=== PATIENT | male | born 1940 | race Caucasian/White ===

== ENCOUNTER 2021-09-26 12:27 | Inpatient (IN) | payer MEDICARE, BC ==
[2021-09-26 13:24] LABS: #Eosinphils 0.2 thou/uL (0.0-0.7); #Lymphocytes 0.5 thou/uL (1.20-3.40); #Monocytes 0.9 thou/uL (0.11-0.59); #Neutrophils 5.5 thou/uL (1.40-6.50); %Eosinophils 2.3 % (0.0-10.0); %Lymphocytes 6.9 % (21.0-51.0); %Monocytes 12.9 % (0.0-10.0); %Neutrophils 77.9 % (42.0-75.0); Hemoglobin 11.5 g/dL (14.0-18.0); Mean Corpuscular HGB CONC 32.1 g/dL (32.0-36.0); Mean Corpuscular Hemoglobin 34.1 pg (27.0-31.0); Mean Platelet Volume 7.6 fL (7.4-10.4); Platelet Count 230 thou/uL (130-400); RBC Distribution Width 15.6 % (11.5-14.5); Red Blood Cell (RBC) Count 3.38 mill/uL (4.70-6.10)
[2021-09-26 13:37] LABS: Anisocytosis SLIGHT = 6-15 cells (100X) (0-5/hpf); MDiff Complete? YES; Macrocytosis SLIGHT = 6-15 cells (100X) (0-5/hpf); Platelet Morphology Comment Appears Adequate; Polychromasia SLIGHT = 2-3 cells (100X) (0-2/hpf)
[2021-09-26 13:51] LABS: ALT (SGPT) 10 U/L (8-55); AST (SGOT) 20 U/L (5-34); Albumin 3.4 g/dL (3.4-4.8); Alkaline Phosphatase 87 U/L (40-110); Anion Gap 15 mmol/L (10-20); BUN (Urea Nitrogen) 13 mg/dL (8.4-25.7); Bilirubin, Total 0.6 mg/dL (0.2-1.2); Calc. Creatinine Clearance 0 mL/min (70-130); Calcium 8.8 mg/dL (7.8-10.44); Carbon Dioxide 22 mmol/L (23-31); Chloride 104 mmol/L (98-107); Globulin 3.6 g/dL (2.4-3.5); Glucose 123 mg/dL (83-110); Lipase 13 U/L (8-78); Potassium 4.8 mmol/L (3.5-5.1); Sodium 136 mmol/L (136-145)
[2021-09-26] MEDS ORDERED: Cefepime 2 GM VIAL ONE (13:56)
[2021-09-26] MEDS ORDERED: Vancomycin 1.5 GRAM/300 ML BAG 1.5 GM in Premix Bag 1 BAG IVPB SCH (14:00)
[2021-09-26 14:56] LABS: Bilirubin Negative (Negative); Blood, Urine Negative (Negative); Clarity Clear (Clear); Glucose, Urine (Dipstick) Normal (Negative); Ketone, Urine Negative (Negative); Leukocyte Negative Leu/uL (Negative); Nitrite Negative (Negative); Protein, Urine (Dipstick) Negative (Neg-Trace); Specific Gravity, Urine 1.014 (1.002-1.036)
[2021-09-26] MEDS ORDERED: Metoprolol Tartrate 5 MG/5 ML VIAL ONE (15:38)
[2021-09-26] MEDS ORDERED: Ondansetron ODT 4 MG TAB PO PRN (17:01)
[2021-09-26] MEDS ORDERED: Acetaminophen 500 MG TAB PO PRN (17:01)
[2021-09-26] MEDS ORDERED: Ondansetron PF 4 MG/2 ML Vial IVP PRN (17:01)
[2021-09-26] MEDS ORDERED: Amiodarone 200 MG TAB PO SCH (17:15)
[2021-09-26 18:16] VITALS: BMI 25.4
[2021-09-26] MEDS ORDERED: Metoprolol Tartrate 5 MG/5 ML VIAL IVP SCH (18:30)
[2021-09-26] MEDS ORDERED: Diltiazem 125 MG in Sodium Chloride 0.9% 100 ML IVPB SCH (18:30)
[2021-09-26] MEDS: Atorvastatin Calcium 40 MG TAB PO SCH (21:39)
[2021-09-26] MEDS: Ezetimibe 10 MG TAB PO SCH (21:40)
[2021-09-26] MEDS: Famotidine 20 MG TAB PO SCH (21:40)
[2021-09-26] MEDS: Sodium Chloride 0.9% 1,000 ML IV SCH (21:41)
[2021-09-27 00:25] LABS: SARS-CoV-2 PCR by NAA Not Detected (NotDetected)
[2021-09-27 04:17] LABS: #Eosinphils 0.1 thou/uL (0.0-0.7); #Lymphocytes 0.6 thou/uL (1.20-3.40); #Monocytes 0.1 thou/uL (0.11-0.59); #Neutrophils 4.5 thou/uL (1.40-6.50); %Basophils 0.3 % (0.0-1.0); %Eosinophils 2.8 % (0.0-10.0); %Lymphocytes 10.5 % (21.0-51.0); %Monocytes 1.5 % (0.0-10.0); %Neutrophils 84.9 % (42.0-75.0); Hemoglobin 9.8 g/dL (14.0-18.0); Mean Corpuscular HGB CONC 32.1 g/dL (32.0-36.0); Mean Corpuscular Hemoglobin 34.3 pg (27.0-31.0); Mean Platelet Volume 7.4 fL (7.4-10.4); Platelet Count 200 thou/uL (130-400); RBC Distribution Width 15.6 % (11.5-14.5); Red Blood Cell (RBC) Count 2.86 mill/uL (4.70-6.10); White Blood Cell (WBC) Count 5.3 thou/uL (4.8-10.8)
[2021-09-27 04:41] LABS: ALT (SGPT) 7 U/L (8-55); AST (SGOT) 12 U/L (5-34); Albumin 2.8 g/dL (3.4-4.8); Alkaline Phosphatase 68 U/L (40-110); Anion Gap 11 mmol/L (10-20); BUN (Urea Nitrogen) 14 mg/dL (8.4-25.7); Bilirubin, Total 0.4 mg/dL (0.2-1.2); Calc. Creatinine Clearance 77 mL/min (70-130); Carbon Dioxide 21 mmol/L (23-31); Chloride 108 mmol/L (98-107); Globulin 2.7 g/dL (2.4-3.5); Glucose 97 mg/dL (83-110); Protein, Total 5.5 g/dL (5.8-8.1); Sodium 136 mmol/L (136-145)
[2021-09-27] MEDS: Sodium Chloride 0.9% 1,000 ML IV SCH ×2 (05:35→15:43)
[2021-09-27] MEDS ORDERED: Non-Formulary Item 1 EACH (Umeclidinium Brm/Vilanterol Tr [Anoro Ellipta] 62.5 MCG/25 MCG IH SCH (09:00)
[2021-09-27] MEDS: Aspirin 81 mg Enteric Coated Tablet PO SCH (09:15)
[2021-09-27] MEDS: Tamsulosin HCl 0.4 MG CAP PO SCH (09:16)
[2021-09-27] MEDS: Allopurinol 300 MG TAB PO SCH (09:16)
[2021-09-27] MEDS: Apixaban 5 MG TAB PO SCH ×2 (09:16→20:02)
[2021-09-27] MEDS: Famotidine 20 MG TAB PO SCH ×2 (09:16→20:02)
[2021-09-27] MEDS: Finasteride 5 MG TAB PO SCH (09:16)
[2021-09-27] MEDS: Metoprolol Tartrate 50 MG TAB PO SCH ×2 (09:16→20:02)
[2021-09-27] MEDS: Amiodarone 200 MG TAB PO SCH (09:16)
[2021-09-27] MEDS: Ezetimibe 10 MG TAB PO SCH (20:02)
[2021-09-27] MEDS: Atorvastatin Calcium 40 MG TAB PO SCH (20:02)
[2021-09-28] MEDS ORDERED: PROPOFOL 20 ML ONE (06:59)
[2021-09-28] MEDS ORDERED: PROPOFOL 200 MG/20 ML VIAL ONE (08:21)
[2021-09-28] MEDS: Aspirin 81 mg Enteric Coated Tablet PO SCH (09:47)
[2021-09-28] MEDS: Tamsulosin HCl 0.4 MG CAP PO SCH (09:47)
[2021-09-28] MEDS: Famotidine 20 MG TAB PO SCH ×2 (09:47→21:20)
[2021-09-28] MEDS: Metoprolol Tartrate 50 MG TAB PO SCH ×2 (09:47→21:21)
[2021-09-28] MEDS: Finasteride 5 MG TAB PO SCH (09:48)
[2021-09-28] MEDS: Apixaban 5 MG TAB PO SCH ×2 (09:48→21:20)
[2021-09-28] MEDS: Amiodarone 200 MG TAB PO SCH (09:48)
[2021-09-28] MEDS: Allopurinol 300 MG TAB PO SCH (09:48)
[2021-09-28] MEDS: Sodium Chloride 0.9% 1,000 ML IV SCH (10:05)
[2021-09-28] MEDS: Atorvastatin Calcium 40 MG TAB PO SCH (21:20)
[2021-09-28] MEDS: Ezetimibe 10 MG TAB PO SCH (21:20)
[2021-09-29] MEDS: Aspirin 81 mg Enteric Coated Tablet PO SCH (09:05)
[2021-09-29] MEDS: Allopurinol 300 MG TAB PO SCH (09:06)
[2021-09-29] MEDS: Famotidine 20 MG TAB PO SCH (09:06)
[2021-09-29] MEDS: Apixaban 5 MG TAB PO SCH (09:06)
[2021-09-29] MEDS: Metoprolol Tartrate 50 MG TAB PO SCH (09:06)
[2021-09-29] MEDS: Tamsulosin HCl 0.4 MG CAP PO SCH (09:06)
[2021-09-29] MEDS: Finasteride 5 MG TAB PO SCH (09:06)
[2021-09-29] MEDS: Amiodarone 200 MG TAB PO SCH (09:07)
[2021-09-29 12:24] VITALS: TEMP 98.7
[2021-09-29 12:42] VITALS: BP 120/59
== END 2021-09-29 14:17 | disposition home health service (06) | DRG 309 ==
LOC: ERS 12:27 → 2NO 16:07
PROVIDERS: ADMIT Family Medicine; ATTEND Internal Medicine
PROC: 5A2204Z Restoration of Cardiac Rhythm, Single (ICD-10-PCS; principal; 2021-09-28)
DX: I48.19 Other persistent atrial fibrillation (principal); N17.9 Acute kidney failure, unspecified; C34.12 Malignant neoplasm of upper lobe, left bronchus or lung; I48.92 Unspecified atrial flutter; N40.0 Benign prostatic hyperplasia without lower urinary tract symptoms; E78.5 Hyperlipidemia, unspecified; R55 Syncope and collapse; F03.90 Unspecified dementia, unspecified severity, without behavioral disturbance, psychotic disturbance, mood disturbance, and anxiety; J44.9 Chronic obstructive pulmonary disease, unspecified; E11.9 Type 2 diabetes mellitus without complications; I45.10 Unspecified right bundle-branch block; M10.9 Gout, unspecified; E78.00 Pure hypercholesterolemia, unspecified; Z20.822 Contact with and (suspected) exposure to COVID-19; Z88.0 Allergy status to penicillin; Z90.49 Acquired absence of other specified parts of digestive tract; Z82.49 Family history of ischemic heart disease and other diseases of the circulatory system; Z85.038 Personal history of other malignant neoplasm of large intestine; Z87.891 Personal history of nicotine dependence; Z92.21 Personal history of antineoplastic chemotherapy; Z92.3 Personal history of irradiation
CPT/HCPCS: 36415; 70450; 71045; 71275; 72125; 80053; 81003; 83605; 83690; 84484; 85025; 85379; 87040; 87086; 92960; 93005; 93010; 93306; 94640; 94760; 96365; 96367; 96375; J0692; J1956; J2704; J3370; J7050; J7620; U0003; U0005

== ENCOUNTER 2021-11-06 11:56 | Inpatient (IN) | payer MEDICARE, BC ==
[2021-11-06 13:50] LABS: #Lymphocytes 0.5 thou/uL (1.20-3.40); #Monocytes 0.9 thou/uL (0.11-0.59); #Neutrophils 5.9 thou/uL (1.40-6.50); %Basophils 0.2 % (0.0-1.0); %Eosinophils 0.4 % (0.0-10.0); %Lymphocytes 7.3 % (21.0-51.0); %Monocytes 12.1 % (0.0-10.0); %Neutrophils 79.9 % (42.0-75.0); Hemoglobin 11.4 g/dL (14.0-18.0); Mean Corpuscular HGB CONC 32.6 g/dL (32.0-36.0); Mean Corpuscular Hemoglobin 34.7 pg (27.0-31.0); Mean Platelet Volume 7.6 fL (7.4-10.4); Platelet Count 269 thou/uL (130-400); Red Blood Cell (RBC) Count 3.27 mill/uL (4.70-6.10); White Blood Cell (WBC) Count 7.4 thou/uL (4.8-10.8)
[2021-11-06 14:27] LABS: ALT (SGPT) 15 U/L (8-55); AST (SGOT) 19 U/L (5-34); Albumin 3.4 g/dL (3.4-4.8); Alkaline Phosphatase 91 U/L (40-110); Anion Gap 13 mmol/L (10-20); BUN (Urea Nitrogen) 17 mg/dL (8.4-25.7); Bilirubin, Total 0.7 mg/dL (0.2-1.2); Calc. Creatinine Clearance 0 mL/min (70-130); Carbon Dioxide 25 mmol/L (23-31); Chloride 104 mmol/L (98-107); Globulin 3.2 g/dL (2.4-3.5); Glucose 116 mg/dL (83-110); Potassium 4.3 mmol/L (3.5-5.1); Protein, Total 6.6 g/dL (5.8-8.1); Sodium 138 mmol/L (136-145)
[2021-11-06 15:25] VITALS: BMI 24.9
[2021-11-06] MEDS: Atorvastatin Calcium 40 MG TAB PO SCH (20:54)
[2021-11-06] MEDS: Tamsulosin HCl 0.4 MG CAP PO SCH (20:54)
[2021-11-06] MEDS: Apixaban 5 MG TAB PO SCH (20:54)
[2021-11-06] MEDS: Amiodarone 200 MG TAB PO SCH (20:54)
[2021-11-07 00:55] LABS: SARS-CoV-2 PCR by NAA Not Detected (NotDetected)
[2021-11-07] MEDS: Diltiazem HCl 125 MG in Premix Bag 1 BAG IVPB SCH ×2 (06:57→19:59)
[2021-11-07] MEDS: Allopurinol 300 MG TAB PO SCH (10:11)
[2021-11-07] MEDS: Amiodarone 200 MG TAB PO SCH ×2 (10:12→20:52)
[2021-11-07] MEDS: Finasteride 5 MG TAB PO SCH (10:12)
[2021-11-07] MEDS: Apixaban 5 MG TAB PO SCH ×2 (10:13→20:53)
[2021-11-07] MEDS: Ezetimibe 10 MG TAB PO SCH (10:13)
[2021-11-07] MEDS: Aspirin 81 mg Enteric Coated Tablet PO SCH (10:13)
[2021-11-07] MEDS ORDERED: Haloperidol 5 MG TAB PO SCH (20:15)
[2021-11-07] MEDS: Tamsulosin HCl 0.4 MG CAP PO SCH (20:53)
[2021-11-07] MEDS: Atorvastatin Calcium 40 MG TAB PO SCH (20:53)
[2021-11-08 05:15] LABS: Anion Gap 15 mmol/L (10-20); BUN (Urea Nitrogen) 12 mg/dL (8.4-25.7); Calc. Creatinine Clearance 70 mL/min (70-130); Calcium 8.7 mg/dL (7.8-10.44); Carbon Dioxide 20 mmol/L (23-31); Chloride 107 mmol/L (98-107); Glucose 106 mg/dL (83-110); Potassium 3.9 mmol/L (3.5-5.1); Sodium 138 mmol/L (136-145)
[2021-11-08 05:19] LABS: Hemoglobin 10.8 g/dL (14.0-18.0); Hypochromia SLIGHT = 6-15 cells (100X) (0-5/hpf); Lymphocytes 5 % (21-51); MDiff Complete? YES; Macrocytosis MODERATE=16-30 cells (100X) (0-5/hpf); Mean Corpuscular HGB CONC 31.8 g/dL (32.0-36.0); Mean Corpuscular Hemoglobin 33.7 pg (27.0-31.0); Mean Platelet Volume 7.6 fL (7.4-10.4); Monocytes 16 % (0-10); Neutrophil 79 % (42-75); Nucleated RBC 1 % (0); Platelet Count 259 thou/uL (130-400); Platelet Morphology Comment Appears Adequate; Polychromasia SLIGHT = 2-3 cells (100X) (0-2/hpf); RBC Distribution Width 14.1 % (11.5-14.5); Red Blood Cell (RBC) Count 3.22 mill/uL (4.70-6.10); White Blood Cell (WBC) Count 5.8 thou/uL (4.8-10.8)
[2021-11-08] MEDS: Diltiazem HCl 125 MG in Premix Bag 1 BAG IVPB SCH (08:38)
[2021-11-08] MEDS: Apixaban 5 MG TAB PO SCH (11:09)
[2021-11-08] MEDS: Amiodarone 200 MG TAB PO SCH (11:09)
[2021-11-08] MEDS: Aspirin 81 mg Enteric Coated Tablet PO SCH (11:09)
[2021-11-08] MEDS: Allopurinol 300 MG TAB PO SCH (11:09)
[2021-11-08] MEDS: Finasteride 5 MG TAB PO SCH (11:10)
[2021-11-08] MEDS: Ezetimibe 10 MG TAB PO SCH (11:10)
[2021-11-08 13:55] VITALS: TEMP 97.1
[2021-11-08 17:07] VITALS: BP 109/57
[2021-11-09] MEDS ORDERED: Amiodarone 200 MG TAB PO SCH (09:00)
== END 2021-11-08 18:45 | disposition home or self-care (01) | DRG 309 ==
LOC: 2SW 12:01 → OBSVTOIN 11-07 10:42
PROVIDERS: ADMIT Internal Medicine Cardiovascular Disease; ATTEND Internal Medicine Cardiovascular Disease
DX: I48.19 Other persistent atrial fibrillation (principal); F05 Delirium due to known physiological condition; I48.92 Unspecified atrial flutter; N40.0 Benign prostatic hyperplasia without lower urinary tract symptoms; F03.90 Unspecified dementia, unspecified severity, without behavioral disturbance, psychotic disturbance, mood disturbance, and anxiety; E78.00 Pure hypercholesterolemia, unspecified; I95.9 Hypotension, unspecified; Z20.822 Contact with and (suspected) exposure to COVID-19; R45.1 Restlessness and agitation; Z92.3 Personal history of irradiation; Z85.038 Personal history of other malignant neoplasm of large intestine; Z85.118 Personal history of other malignant neoplasm of bronchus and lung; Z90.49 Acquired absence of other specified parts of digestive tract; Z92.21 Personal history of antineoplastic chemotherapy; Z82.49 Family history of ischemic heart disease and other diseases of the circulatory system; Z88.0 Allergy status to penicillin; Z79.82 Long term (current) use of aspirin; Z79.899 Other long term (current) drug therapy; Z79.01 Long term (current) use of anticoagulants
CPT/HCPCS: 36415; 80048; 80053; 85025; 96365; 96366; 96376; G0378; J3490; U0003; U0005

== ENCOUNTER 2021-11-10 08:45 | Day surgery (SDC) | payer MEDICARE, BC ==
[2021-11-09 15:20] VITALS: BMI 24.4
[2021-11-10] MEDS ORDERED: Lidocaine 1% (PF) 30 ML VIAL ONE (09:51)
[2021-11-10] MEDS ORDERED: Heparin 25,000 units/D5W 0 ML ONE (09:51)
[2021-11-10] MEDS ORDERED: Isoproterenol 0.2 MG/1 ML AMP ONE (09:51)
[2021-11-10] MEDS ORDERED: DOPamine 400 MG/D5W 250 ML 250 ML ONE (09:51)
[2021-11-10] MEDS ORDERED: Heparin 10,000 UNITS/ 10 ML VIAL ONE (09:51)
[2021-11-10] MEDS ORDERED: Propofol 500 MG/50 ML VIAL ONE (10:42)
[2021-11-10] MEDS ORDERED: Fentanyl 100 MCG/2 ML VIAL ONE (10:49)
[2021-11-10] MEDS ORDERED: PHENYLEPHRINE-NS 100 MCG/ML 10 ML SYRINGE ONE (10:58)
[2021-11-10] MEDS ORDERED: PROPOFOL 200 MG/20 ML VIAL ONE (10:58)
[2021-11-10] MEDS ORDERED: Lidocaine 1% PF 5 ML VIAL ONE (10:58)
[2021-11-10] MEDS ORDERED: Phenylephrine 10 MG/ML VIAL ONE (11:13)
== END 2021-11-10 17:15 | disposition home or self-care (01) ==
LOC: SDC 08:45
PROVIDERS: ATTEND Internal Medicine Cardiovascular Disease
DX: I48.19 Other persistent atrial fibrillation (principal); I48.3 Typical atrial flutter; C34.90 Malignant neoplasm of unspecified part of unspecified bronchus or lung; F03.90 Unspecified dementia, unspecified severity, without behavioral disturbance, psychotic disturbance, mood disturbance, and anxiety; R29.6 Repeated falls; I45.10 Unspecified right bundle-branch block; J44.9 Chronic obstructive pulmonary disease, unspecified; E78.00 Pure hypercholesterolemia, unspecified; Z79.01 Long term (current) use of anticoagulants; Z79.82 Long term (current) use of aspirin; Z79.899 Other long term (current) drug therapy; Z88.0 Allergy status to penicillin; Z88.8 Allergy status to other drugs, medicaments and biological substances
CPT/HCPCS: 93005; 93613; 93621; 93623; 93653; C1730 ×2; C1732; C1760; J1265; J1644; J2001; J2370; J2704; J3010

== ENCOUNTER 2022-01-26 16:58 | Observation (INO) | payer MEDICARE, BC ==
[~2022-01-26 16:58] MED LIST: Iopamidol-370 76% 500 ML 1 ML ONE
[2022-01-26 18:00] LABS: #Lymphocytes 0.2 thou/uL (1.20-3.40); #Monocytes 0.3 thou/uL (0.11-0.59); #Neutrophils 13.8 thou/uL (1.40-6.50); %Eosinophils 0.1 % (0.0-10.0); %Lymphocytes 1.5 % (21.0-51.0); %Monocytes 1.9 % (0.0-10.0); %Neutrophils 96.6 % (42.0-75.0); Hemoglobin 10.8 g/dL (14.0-18.0); Mean Corpuscular HGB CONC 32.1 g/dL (32.0-36.0); Mean Corpuscular Hemoglobin 29.8 pg (27.0-31.0); Mean Corpuscular Volume 92.7 fL (78.0-98.0); Mean Platelet Volume 9.9 fL (7.4-10.4); Platelet Count 151 thou/uL (130-400); RBC Distribution Width 16.7 % (11.5-14.5); Red Blood Cell (RBC) Count 3.63 mill/uL (4.70-6.10); White Blood Cell (WBC) Count 14.3 thou/uL (4.8-10.8)
[2022-01-26 18:21] LABS: ALT (SGPT) 30 U/L (8-55); AST (SGOT) 23 U/L (5-34); Albumin 2.8 g/dL (3.4-4.8); Alkaline Phosphatase 68 U/L (40-110); Anion Gap 13 mmol/L (10-20); BUN (Urea Nitrogen) 54 mg/dL (8.4-25.7); Bilirubin, Total 0.4 mg/dL (0.2-1.2); Calc. Creatinine Clearance 0 mL/min (70-130); Calcium 7.7 mg/dL (7.8-10.44); Carbon Dioxide 23 mmol/L (23-31); Chloride 105 mmol/L (98-107); Estimated GFR 60; Globulin 2.5 g/dL (2.4-3.5); Glucose 231 mg/dL (83-110); Potassium 5.1 mmol/L (3.5-5.1); Protein, Total 5.3 g/dL (5.8-8.1); Sodium 136 mmol/L (136-145)
[2022-01-26 18:42] LABS: CKMB 1.9 ng/mL (0-6.6)
[2022-01-26] MEDS ORDERED: Vancomycin 1 GM/200 ML BAG ONE (22:12)
[2022-01-26 23:23] LABS: Troponin I 0.031 ng/mL (< 0.028)
[2022-01-26] MEDS ORDERED: cefTRIAXone\\ROCEPHIN 2 GM VIAL ONE (23:29)
[2022-01-27] MEDS ORDERED: Acetaminophen 325 MG TAB PO PRN (00:15)
[2022-01-27] MEDS ORDERED: Ondansetron PF 4 MG/2 ML Vial IVP PRN (00:15)
[2022-01-27] MEDS ORDERED: Ondansetron ODT 4 MG TAB SL PRN (00:15)
[2022-01-27 00:30] VITALS: BMI 22.1
[2022-01-27] MEDS ORDERED: HumaLOG 300 UNITS/3 ML VIAL SC PRN ×2 (01:21)
[2022-01-27] MEDS ORDERED: Dextrose 50% Abboject 50 ML SYRINGE SLOW IVP PRN (01:21)
[2022-01-27] MEDS ORDERED: Dextrose 5% in Water 1,000 ML IV PRN (01:21)
[2022-01-27] MEDS ORDERED: Acetaminophen 650 MG Suppository PR PRN (01:22)
[2022-01-27] MEDS ORDERED: Melatonin 3 MG TAB PO PRN (01:25)
[2022-01-27] MEDS ORDERED: Ipratropium Bromide 2.5 ml Neb NEB PRN (01:25)
[2022-01-27 02:33] LABS: #Lymphocytes 0.4 thou/uL (1.20-3.40); #Monocytes 0.9 thou/uL (0.11-0.59); #Neutrophils 14.5 thou/uL (1.40-6.50); %Eosinophils 0.2 % (0.0-10.0); %Lymphocytes 2.3 % (21.0-51.0); %Monocytes 5.7 % (0.0-10.0); %Neutrophils 91.8 % (42.0-75.0); Hemoglobin 10.4 g/dL (14.0-18.0); Mean Corpuscular HGB CONC 31.8 g/dL (32.0-36.0); Mean Corpuscular Hemoglobin 29.8 pg (27.0-31.0); Mean Corpuscular Volume 93.4 fL (78.0-98.0); Platelet Count 143 thou/uL (130-400); RBC Distribution Width 16.8 % (11.5-14.5); White Blood Cell (WBC) Count 15.8 thou/uL (4.8-10.8)
[2022-01-27 02:47] LABS: Lactic Acid 1.5 mmol/L (0.5-2.2)
[2022-01-27 02:56] LABS: Troponin I 0.034 ng/mL (< 0.028)
[2022-01-27 02:57] LABS: Anion Gap 13 mmol/L (10-20); BUN (Urea Nitrogen) 50 mg/dL (8.4-25.7); Calc. Creatinine Clearance 55 mL/min (70-130); Calcium 7.8 mg/dL (7.8-10.44); Carbon Dioxide 23 mmol/L (23-31); Chloride 106 mmol/L (98-107); Estimated GFR 69; Glucose 198 mg/dL (83-110); Potassium 4.1 mmol/L (3.5-5.1); Sodium 138 mmol/L (136-145)
[2022-01-27] MEDS ORDERED: Azithromycin 500 MG in Sodium Chloride 0.9% 250 ML 250 ML IVPB SCH (08:00)
[2022-01-27] MEDS ORDERED: predniSONE 20 MG TAB PO SCH (08:00)
[2022-01-27] MEDS ORDERED: Amiodarone 200 MG TAB PO SCH (09:00)
[2022-01-27] MEDS ORDERED: Apixaban 5 MG TAB PO SCH (09:00)
[2022-01-27] MEDS ORDERED: Cefepime 2 GM in Sodium Chloride 0.9% 100 ML IVPB SCH (09:00)
[2022-01-27] MEDS ORDERED: Enoxaparin Sodium 40 MG/0.4 ML SYRINGE SC SCH (09:00)
[2022-01-27] MEDS ORDERED: Ezetimibe 10 MG TAB PO SCH (09:00)
[2022-01-27 12:03] VITALS: TEMP 97.5
[2022-01-27 16:00] VITALS: BP 131/58
[2022-01-27] MEDS ORDERED: cefTRIAXone\\ROCEPHIN 1 GM in Sodium Chloride 0.9% 100 ML IVPB SCH (21:00)
[2022-01-27] MEDS ORDERED: Tamsulosin HCl 0.4 MG CAP PO SCH (21:00)
[2022-02-02] MEDS ORDERED: predniSONE 20 MG TAB PO SCH (08:00)
[2022-02-09] MEDS ORDERED: predniSONE 20 MG TAB PO SCH (08:00)
[2022-02-16] MEDS ORDERED: predniSONE 5 MG TAB PO SCH (08:00)
== END 2022-01-27 15:56 ==
LOC: ERS 16:58 → 2NO 22:33
PROVIDERS: ADMIT Internal Medicine; ATTEND Internal Medicine
DX: J18.9 Pneumonia, unspecified organism (principal); M79.89 Other specified soft tissue disorders; C34.92 Malignant neoplasm of unspecified part of left bronchus or lung; I48.0 Paroxysmal atrial fibrillation; F03.90 Unspecified dementia, unspecified severity, without behavioral disturbance, psychotic disturbance, mood disturbance, and anxiety; N40.0 Benign prostatic hyperplasia without lower urinary tract symptoms; E78.5 Hyperlipidemia, unspecified; E11.9 Type 2 diabetes mellitus without complications; Z87.891 Personal history of nicotine dependence; Z79.01 Long term (current) use of anticoagulants; Z79.2 Long term (current) use of antibiotics; Z79.4 Long term (current) use of insulin; Z79.84 Long term (current) use of oral hypoglycemic drugs; Z79.899 Other long term (current) drug therapy; Z88.0 Allergy status to penicillin; Z88.8 Allergy status to other drugs, medicaments and biological substances
CPT/HCPCS: 71275; 80048; 80053; 82553; 82962; 83605 ×2; 84484 ×3; 85025 ×2; 85379; 87040; 93005; 93971; 96365; 96375; 99285; G0378 ×2; 36415; 36416; J0696; J3370; J7512; Q9967

== ENCOUNTER 2022-02-05 10:35 | Inpatient (IN) | payer MEDICARE, BC ==
[2022-02-05 10:49] LABS: #Lymphocytes 0.3 thou/uL (1.20-3.40); #Monocytes 0.7 thou/uL (0.11-0.59); #Neutrophils 6.3 thou/uL (1.40-6.50); %Eosinophils 0.4 % (0.0-10.0); %Lymphocytes 3.8 % (21.0-51.0); %Monocytes 9.2 % (0.0-10.0); %Neutrophils 86.7 % (42.0-75.0); Hemoglobin 12.3 g/dL (14.0-18.0); Mean Corpuscular HGB CONC 32.1 g/dL (32.0-36.0); Mean Corpuscular Hemoglobin 29.9 pg (27.0-31.0); Mean Corpuscular Volume 93.3 fL (78.0-98.0); Mean Platelet Volume 9.1 fL (7.4-10.4); Platelet Count 185 thou/uL (130-400); RBC Distribution Width 18.3 % (11.5-14.5); Red Blood Cell (RBC) Count 4.11 mill/uL (4.70-6.10); White Blood Cell (WBC) Count 7.3 thou/uL (4.8-10.8)
[2022-02-05 11:06] LABS: ALT (SGPT) 23 U/L (8-55); AST (SGOT) 20 U/L (5-34); Albumin 3.2 g/dL (3.4-4.8); Alkaline Phosphatase 68 U/L (40-110); Anion Gap 14 mmol/L (10-20); BUN (Urea Nitrogen) 44 mg/dL (8.4-25.7); Bilirubin, Total 0.5 mg/dL (0.2-1.2); Calc. Creatinine Clearance 0 mL/min (70-130); Calcium 8.6 mg/dL (7.8-10.44); Carbon Dioxide 22 mmol/L (23-31); Chloride 107 mmol/L (98-107); Estimated GFR 76; Globulin 2.5 g/dL (2.4-3.5); Glucose 97 mg/dL (83-110); Potassium 4.4 mmol/L (3.5-5.1); Protein, Total 5.7 g/dL (5.8-8.1); Sodium 139 mmol/L (136-145)
[2022-02-05 11:07] LABS: INR-International Normal Ratio 1.1; PTT 23.4 sec (22.9-36.1); Prothrombin Time 14.3 sec (12.0-14.7)
[2022-02-05 11:36] LABS: CKMB 2.2 ng/mL (0-6.6)
[2022-02-05] MEDS ORDERED: HumaLOG 300 UNITS/3 ML VIAL SC PRN (15:46)
[2022-02-05] MEDS ORDERED: Bisacodyl 5 MG TAB PO PRN (15:46)
[2022-02-05] MEDS ORDERED: Dextrose 5% in Water 1,000 ML IV PRN (15:46)
[2022-02-05] MEDS ORDERED: Dextrose 50% Abboject 50 ML SYRINGE SLOW IVP PRN (15:46)
[2022-02-05] MEDS ORDERED: hydrALAZINE 20 MG/ML VIAL SLOW IVP PRN (15:46)
[2022-02-05] MEDS ORDERED: Acetaminophen 650 MG Suppository PR PRN (15:46)
[2022-02-05] MEDS ORDERED: Iopamidol-370 76% 500 ML 1 ML ONE (15:52)
[2022-02-05 16:12] VITALS: BMI 22.5
[2022-02-05] MEDS: Apixaban 5 MG TAB PO SCH (21:50)
[2022-02-05] MEDS: Tamsulosin HCl 0.4 MG CAP PO SCH (21:50)
[2022-02-05] MEDS: metFORMIN 500 MG TAB PO SCH (21:50)
[2022-02-05] MEDS: Cefdinir 300 MG CAP PO SCH (21:50)
[2022-02-06 04:54] LABS: #Eosinphils 0.1 thou/uL (0.0-0.7); #Lymphocytes 0.3 thou/uL (1.20-3.40); #Monocytes 0.6 thou/uL (0.11-0.59); #Neutrophils 4.9 thou/uL (1.40-6.50); %Basophils 0.2 % (0.0-1.0); %Eosinophils 2.3 % (0.0-10.0); %Lymphocytes 4.5 % (21.0-51.0); %Monocytes 10.6 % (0.0-10.0); %Neutrophils 82.4 % (42.0-75.0); Hemoglobin 10.6 g/dL (14.0-18.0); Mean Corpuscular HGB CONC 31.8 g/dL (32.0-36.0); Mean Corpuscular Hemoglobin 29.8 pg (27.0-31.0); Mean Corpuscular Volume 93.8 fL (78.0-98.0); Mean Platelet Volume 8.5 fL (7.4-10.4); Platelet Count 167 thou/uL (130-400); RBC Distribution Width 18.5 % (11.5-14.5); Red Blood Cell (RBC) Count 3.56 mill/uL (4.70-6.10)
[2022-02-06 05:18] LABS: Anion Gap 12 mmol/L (10-20); BUN (Urea Nitrogen) 36 mg/dL (8.4-25.7); Calc. Creatinine Clearance 69 mL/min (70-130); Carbon Dioxide 24 mmol/L (23-31); Cardiac Risk 2.3 (Less than 4.5); Chloride 107 mmol/L (98-107); Cholesterol 133 mg/dl (< 200 Desired); Estimated GFR 86; Glucose 101 mg/dL (83-110); HDL Cholesterol 57 mg/dL (>60 Neg Risk); LDL Cholesterol, Calculated 66 mg/dL; Sodium 139 mmol/L (136-145); Triglycerides 50 mg/dL (Less than 150)
[2022-02-06] MEDS: Amiodarone 200 MG TAB PO SCH (10:22)
[2022-02-06] MEDS: Allopurinol 300 MG TAB PO SCH (10:23)
[2022-02-06] MEDS: Atorvastatin Calcium 40 MG TAB PO SCH (10:23)
[2022-02-06] MEDS: Ezetimibe 10 MG TAB PO SCH (10:23)
[2022-02-06] MEDS: Cefdinir 300 MG CAP PO SCH ×2 (10:23→22:20)
[2022-02-06] MEDS: Apixaban 5 MG TAB PO SCH (10:24)
[2022-02-06] MEDS: metFORMIN 500 MG TAB PO SCH ×2 (10:27→22:20)
[2022-02-06] MEDS ORDERED: Lansoprazole 3 MG/ML ORAL SUSPENSION PER TUBE SCH (11:00)
[2022-02-06] MEDS ORDERED: Aspirin Chewable 81 MG TAB PO SCH (12:00)
[2022-02-06] MEDS: Tamsulosin HCl 0.4 MG CAP PO SCH (22:19)
[2022-02-06] MEDS: Cefepime 2 GM in Sodium Chloride 0.9% 100 ML IVPB SCH (23:36)
[2022-02-06] MEDS ORDERED: Vancomycin 1.5 GRAM/300 ML BAG 1.5 GM in Premix Bag 1 BAG IVPB SCH (23:59)
[2022-02-07 05:59] LABS: #Eosinphils 0.1 thou/uL (0.0-0.7); #Lymphocytes 0.3 thou/uL (1.20-3.40); #Monocytes 0.5 thou/uL (0.11-0.59); #Neutrophils 4.2 thou/uL (1.40-6.50); %Eosinophils 2.4 % (0.0-10.0); %Monocytes 10.2 % (0.0-10.0); %Neutrophils 81.4 % (42.0-75.0); Hemoglobin 10.1 g/dL (14.0-18.0); Mean Corpuscular HGB CONC 32.3 g/dL (32.0-36.0); Mean Corpuscular Hemoglobin 30.6 pg (27.0-31.0); Mean Corpuscular Volume 94.6 fL (78.0-98.0); Mean Platelet Volume 8.9 fL (7.4-10.4); Platelet Count 167 thou/uL (130-400); White Blood Cell (WBC) Count 5.1 thou/uL (4.8-10.8)
[2022-02-07 06:06] LABS: Anion Gap 13 mmol/L (10-20); BUN (Urea Nitrogen) 28 mg/dL (8.4-25.7); Calc. Creatinine Clearance 72 mL/min (70-130); Calcium 7.8 mg/dL (7.8-10.44); Carbon Dioxide 22 mmol/L (23-31); Chloride 106 mmol/L (98-107); Estimated GFR 87; Glucose 113 mg/dL (83-110); Potassium 3.6 mmol/L (3.5-5.1); Sodium 137 mmol/L (136-145)
[2022-02-07] MEDS: Atorvastatin Calcium 40 MG TAB PO SCH (08:37)
[2022-02-07] MEDS: Lansoprazole 3 MG/ML ORAL SUSPENSION PER TUBE SCH (08:37)
[2022-02-07] MEDS: Amiodarone 200 MG TAB PO SCH (08:37)
[2022-02-07] MEDS: Aspirin 81 mg Enteric Coated Tablet PO SCH (08:37)
[2022-02-07] MEDS: metFORMIN 500 MG TAB PO SCH ×2 (08:37→21:19)
[2022-02-07] MEDS: Allopurinol 300 MG TAB PO SCH (08:37)
[2022-02-07] MEDS: Apixaban 5 MG TAB PO SCH ×2 (08:37→21:19)
[2022-02-07] MEDS: Ezetimibe 10 MG TAB PO SCH (08:37)
[2022-02-07] MEDS ORDERED: Apixaban 5 MG TAB PO SCH (09:00)
[2022-02-07] MEDS ORDERED: Vancomycin 1 GM in Premix Bag 1 BAG IVPB SCH (09:00)
[2022-02-07] MEDS: Cefepime 2 GM in Sodium Chloride 0.9% 100 ML IVPB SCH (10:34)
[2022-02-07] MEDS ORDERED: VANCOMYCIN 1.25 GM/250 ML BAG 1.25 GM in Premix Bag 1 BAG IVPB SCH (12:00)
[2022-02-07] MEDS: Tamsulosin HCl 0.4 MG CAP PO SCH (21:19)
[2022-02-07] MEDS: Acetaminophen 325 MG TAB PO PRN (21:19)
[2022-02-08] MEDS ORDERED: Benzonatate 100 MG CAP PO SCH (01:30)
[2022-02-08 06:54] LABS: #Basophils 0.1 thou/uL (0.0-0.2); #Eosinphils 0.1 thou/uL (0.0-0.7); #Lymphocytes 0.2 thou/uL (1.20-3.40); #Monocytes 0.7 thou/uL (0.11-0.59); #Neutrophils 4.4 thou/uL (1.40-6.50); %Basophils 1.2 % (0.0-1.0); %Lymphocytes 4.2 % (21.0-51.0); %Monocytes 12.1 % (0.0-10.0); %Neutrophils 80.5 % (42.0-75.0); Hemoglobin 10.5 g/dL (14.0-18.0); Mean Corpuscular HGB CONC 34.2 g/dL (32.0-36.0); Mean Corpuscular Hemoglobin 32.5 pg (27.0-31.0); Mean Platelet Volume 8.6 fL (7.4-10.4); Platelet Count 163 thou/uL (130-400); RBC Distribution Width 18.1 % (11.5-14.5); Red Blood Cell (RBC) Count 3.23 mill/uL (4.70-6.10); White Blood Cell (WBC) Count 5.5 thou/uL (4.8-10.8)
[2022-02-08 07:12] LABS: Anion Gap 13 mmol/L (10-20); BUN (Urea Nitrogen) 26 mg/dL (8.4-25.7); Calc. Creatinine Clearance 84 mL/min (70-130); Calcium 7.8 mg/dL (7.8-10.44); Carbon Dioxide 24 mmol/L (23-31); Chloride 106 mmol/L (98-107); Estimated GFR 91; Glucose 94 mg/dL (83-110); Potassium 3.7 mmol/L (3.5-5.1); Sodium 139 mmol/L (136-145)
[2022-02-08] MEDS: Apixaban 5 MG TAB PO SCH ×2 (09:42→22:02)
[2022-02-08] MEDS: Aspirin 81 mg Enteric Coated Tablet PO SCH (09:42)
[2022-02-08] MEDS: Allopurinol 300 MG TAB PO SCH (09:42)
[2022-02-08] MEDS: Benzonatate 100 MG CAP PO SCH ×3 (09:42→22:01)
[2022-02-08] MEDS: Ezetimibe 10 MG TAB PO SCH (09:42)
[2022-02-08] MEDS: metFORMIN 500 MG TAB PO SCH ×2 (09:42→22:02)
[2022-02-08] MEDS: Atorvastatin Calcium 40 MG TAB PO SCH (09:42)
[2022-02-08] MEDS: Lansoprazole 3 MG/ML ORAL SUSPENSION PER TUBE SCH (09:43)
[2022-02-08] MEDS: Amiodarone 200 MG TAB PO SCH (09:43)
[2022-02-08] MEDS: Tamsulosin HCl 0.4 MG CAP PO SCH (22:01)
[2022-02-08] MEDS: Acetaminophen 325 MG TAB PO PRN (22:01)
[2022-02-09 05:17] LABS: Anion Gap 12 mmol/L (10-20); BUN (Urea Nitrogen) 26 mg/dL (8.4-25.7); Calc. Creatinine Clearance 79 mL/min (70-130); Carbon Dioxide 24 mmol/L (23-31); Chloride 105 mmol/L (98-107); Estimated GFR 89; Glucose 99 mg/dL (83-110); Potassium 3.8 mmol/L (3.5-5.1); Sodium 137 mmol/L (136-145)
[2022-02-09 05:27] LABS: Band 7 % (5-11); Eosinophils 1 % (0-10); Hemoglobin 10.1 g/dL (14.0-18.0); Hypochromia SLIGHT = 6-15 cells (100X) (0-5/hpf); Lymphocytes 14 % (21-51); MDiff Complete? YES; Mean Corpuscular Volume 93.5 fL (78.0-98.0); Mean Platelet Volume 8.4 fL (7.4-10.4); Monocytes 2 % (0-10); Neutrophil 75 % (42-75); Platelet Count 164 thou/uL (130-400); Platelet Morphology Comment Appears Adequate; RBC Distribution Width 18.3 % (11.5-14.5); Reactive Lymphocytes 1 % (0-10); Red Blood Cell (RBC) Count 3.37 mill/uL (4.70-6.10); White Blood Cell (WBC) Count 5.4 thou/uL (4.8-10.8)
[2022-02-09] MEDS: Aspirin 81 mg Enteric Coated Tablet PO SCH (10:13)
[2022-02-09] MEDS: metFORMIN 500 MG TAB PO SCH (10:13)
[2022-02-09] MEDS: Benzonatate 100 MG CAP PO SCH (10:13)
[2022-02-09] MEDS: Ezetimibe 10 MG TAB PO SCH (10:13)
[2022-02-09] MEDS: Atorvastatin Calcium 40 MG TAB PO SCH (10:13)
[2022-02-09] MEDS: Allopurinol 300 MG TAB PO SCH (10:13)
[2022-02-09] MEDS: Apixaban 5 MG TAB PO SCH (10:13)
[2022-02-09] MEDS: Amiodarone 200 MG TAB PO SCH (10:13)
[2022-02-09] MEDS: Lansoprazole 3 MG/ML ORAL SUSPENSION PER TUBE SCH (10:14)
[2022-02-09 11:55] VITALS: BP 117/54; TEMP 98.6
== END 2022-02-09 12:38 | DRG 308 ==
LOC: ERS 10:35 → NEURO 12:56
PROVIDERS: ADMIT Internal Medicine; ATTEND Internal Medicine
DX: I48.0 Paroxysmal atrial fibrillation (principal); G93.41 Metabolic encephalopathy; C34.12 Malignant neoplasm of upper lobe, left bronchus or lung; J70.1 Chronic and other pulmonary manifestations due to radiation; R53.1 Weakness; I45.2 Bifascicular block; Z66 Do not resuscitate; Z20.822 Contact with and (suspected) exposure to COVID-19; E11.9 Type 2 diabetes mellitus without complications; F03.90 Unspecified dementia, unspecified severity, without behavioral disturbance, psychotic disturbance, mood disturbance, and anxiety; E78.5 Hyperlipidemia, unspecified; Y84.2 Radiological procedure and radiotherapy as the cause of abnormal reaction of the patient, or of later complication, without mention of misadventure at the time of the procedure; Z88.0 Allergy status to penicillin; Z88.8 Allergy status to other drugs, medicaments and biological substances; Z98.890 Other specified postprocedural states; Z85.51 Personal history of malignant neoplasm of bladder; Z87.891 Personal history of nicotine dependence; Z87.01 Personal history of pneumonia (recurrent); Z87.898 Personal history of other specified conditions
CPT/HCPCS: 36415; 36416; 70450; 70496; 70498; 70553; 71045; 71250; 80048; 80053; 80061; 82553; 84484; 85025; 85610; 85730; 87040; 87116; 87206; 87633; 87798; 93005; 93306; 94640; 95712; 95819; 95957; 96374; J0692; J1815; J3370; J3490; J7620; Q9967; U0003; U0005